=== PATIENT | female | born 1960 | race Caucasian/White ===

== ENCOUNTER 2022-01-05 10:15 | Outpatient (CLI) | payer BC | END 2022-01-05 10:16 | disposition home or self-care (01) | LOC: PET 10:15 | PROVIDERS: ATTEND Internal Medicine Hematology & Oncology | DX: C34.12 Malignant neoplasm of upper lobe, left bronchus or lung (principal) | CPT/HCPCS: 78815; A9552 ==

== ENCOUNTER 2022-01-08 08:42 | Outpatient (CLI) | payer BC ==
[2022-01-08] MEDS ORDERED: Iopamidol 370 76% 100 ML VIAL ONE (13:32)
== END 2022-01-08 08:43 | disposition home or self-care (01) ==
LOC: CT 08:42
PROVIDERS: ATTEND Internal Medicine Hematology & Oncology
DX: C34.12 Malignant neoplasm of upper lobe, left bronchus or lung (principal); C79.51 Secondary malignant neoplasm of bone; R59.0 Localized enlarged lymph nodes; I31.3 Pericardial effusion (noninflammatory); R93.2 Abnormal findings on diagnostic imaging of liver and biliary tract
CPT/HCPCS: 71260; Q9967

== ENCOUNTER 2022-01-10 12:31 | Outpatient (CLI) | payer BC ==
[~2022-01-10 12:31] MED LIST: Magnevist 469MG/ML 20 ML VIAL ONE
== END 2022-01-10 12:32 | disposition home or self-care (01) ==
LOC: MRI 12:31
PROVIDERS: ATTEND Internal Medicine Hematology & Oncology
DX: C34.12 Malignant neoplasm of upper lobe, left bronchus or lung (principal); I31.3 Pericardial effusion (noninflammatory)
CPT/HCPCS: 70553; A9579

== ENCOUNTER → 2022-04-27 | Outpatient (CLI) | payer BC | LOC: PET 09:30 | PROVIDERS: ATTEND Internal Medicine Hematology & Oncology | DX: C34.12 Malignant neoplasm of upper lobe, left bronchus or lung (principal) | CPT/HCPCS: 78815; A9552 ==

== ENCOUNTER → 2022-07-24 | Outpatient (CLI) | payer BC | LOC: PET 08:45 | PROVIDERS: ATTEND Internal Medicine Hematology & Oncology | DX: C34.12 Malignant neoplasm of upper lobe, left bronchus or lung (principal); R91.8 Other nonspecific abnormal finding of lung field | CPT/HCPCS: 78815; A9552 ==

== ENCOUNTER 2023-03-01 11:59 | Outpatient (CLI) | payer OTHER | END 2023-03-01 12:00 | disposition home or self-care (01) | LOC: PET 11:59 | PROVIDERS: ATTEND Internal Medicine Hematology & Oncology | DX: C34.12 Malignant neoplasm of upper lobe, left bronchus or lung (principal); R91.8 Other nonspecific abnormal finding of lung field; R59.0 Localized enlarged lymph nodes | CPT/HCPCS: 78815; A9552 ==

== ENCOUNTER 2023-06-20 11:45 | Outpatient (CLI) | payer OTHER | END 2023-06-20 11:46 | disposition home or self-care (01) | LOC: PET 11:45 | PROVIDERS: ATTEND Internal Medicine Hematology & Oncology | DX: C34.12 Malignant neoplasm of upper lobe, left bronchus or lung (principal); R91.1 Solitary pulmonary nodule | CPT/HCPCS: 78815; A9552 ==

== ENCOUNTER 2023-09-12 09:30 | Outpatient (CLI) | payer OTHER | END 2023-09-12 09:31 | disposition home or self-care (01) | LOC: PET 09:30 | PROVIDERS: ATTEND Internal Medicine Hematology & Oncology | DX: C34.12 Malignant neoplasm of upper lobe, left bronchus or lung (principal) | CPT/HCPCS: 78815; A9552 ==

== ENCOUNTER 2023-12-05 07:15 | Outpatient (CLI) | payer OTHER | END 2023-12-05 07:16 | disposition home or self-care (01) | LOC: CT 07:15 | PROVIDERS: ATTEND Internal Medicine Hematology & Oncology | DX: C34.12 Malignant neoplasm of upper lobe, left bronchus or lung (principal); C77.0 Secondary and unspecified malignant neoplasm of lymph nodes of head, face and neck; R91.8 Other nonspecific abnormal finding of lung field; K76.9 Liver disease, unspecified | CPT/HCPCS: 70491; 71260 ==

== ENCOUNTER 2023-12-26 10:15 | Outpatient (CLI) | payer OTHER | END 2023-12-26 10:16 | disposition home or self-care (01) | LOC: PET 10:15 | PROVIDERS: ATTEND Internal Medicine Hematology & Oncology | DX: C34.12 Malignant neoplasm of upper lobe, left bronchus or lung (principal); K76.89 Other specified diseases of liver; M62.89 Other specified disorders of muscle; Z98.890 Other specified postprocedural states | CPT/HCPCS: 78815; A9552 ==

== ENCOUNTER 2024-03-20 08:00 | Outpatient (CLI) | payer OTHER | END 2024-03-20 08:01 | disposition home or self-care (01) | LOC: PET 08:00 | PROVIDERS: ATTEND Internal Medicine Hematology & Oncology | DX: C34.12 Malignant neoplasm of upper lobe, left bronchus or lung (principal) | CPT/HCPCS: 78815; A9552 ==